=== PATIENT | female | born 1945 | race Caucasian/White ===

== ENCOUNTER → 2017-07-29 | Outpatient (CLI) | payer MEDICARE ==
[~2017-07-29] MED LIST: ASPIRIN 81MG TA81 MG PO; ATENOLOL50 M1 PO; HYDROCHLOROTHIA25 M1 PO; HYDROCODONE1 TABLET PO; LISINOPRIL OR; MECLIZINE 25MG25 MG PO; NORVASC 10MG. T10 MG PO; PLAVIX 75MG TAB75 MG PO; PRAVASTATIN SOD80 MG PO; PRILOSEC40 MG PO
--- NOTE | 2017-07-29 15:32 | RADIOLOGY REPORT PS360 ---
EXAM: LUMBAR SPINE 5 VIEWS HISTORY: RT SIDED LOW BACK PAIN ORDERING PHYSICIAN: Shashi Knapp MD PATIENT AGE: 71 years COMPARISON: 04/21/2014 FINDINGS: Mild lumbar scoliosis convex right. There is mild to moderate anterior wedging of T12 which was not present on the previous exam. Mild degenerative disc disease L1-L2 with moderate degenerative disc disease L2-L3. Facet arthritic changes are present at L4-L5 and L5-S1. Generalized vascular calcification. Unremarkable SI joints. IMPRESSION: 1. Mild wedging of L1 anteriorly age-indeterminate but has developed since 04/21/2014. MRI may better determine if this is acute or old. 2. Lumbar spondylosis with degenerative disc disease and facet arthritic change
== END ==
LOC: RAD 14:26
DX: M54.5 Low back pain (principal)